=== PATIENT | female | born 1935 | race Caucasian/White ===

== ENCOUNTER → 2018-12-04 | Outpatient (CLI) | payer OTHER ==
[~2018-12-04] MED LIST: ALENDRONATE; BENTYL 20 MG TA20 M1 PO; CENTRUM SILVER1 EAC1 PO; CITRACAL + D C1 EACH PO; LIBRAX; OMEGA-3100 MG PO; OMEPRAZOLE20 MG PO; VITAMIN D1000 UNI1 PO
--- NOTE | 2018-12-04 09:20 | EXE ---
[facility] [place] [address] STRESS ECHOCARDIOGRAM Name: NGUYỄN STALEY Room #: REG [facility]#: [id number] ������������� Admission: 12/04/18 ������������� Attend Phys: Manisha Owusu Discharge: ��� ������������� ��� Date of : 35 Date of Service: 12/04/18918 �� Report #: [id number] �������� ��������������������������������������������[id number] THIS REPORT FOR: //name// APPROVED REPORT Study performed: 12/04/2018 08:12:39 Exam: Stress Echocardiogram Indication: Dyspnea on exertion Patient Location: Out-Patient Stress Nurse: Yelena Vallecillo RN Status: routine Ht: 5 ft 1 in HR: 65 bpm BP: 150/78 mmHg Rhythm: NSR Medical History Medical History: None Medications: No cardiac meds Allergies: Sulfa Cardiac Risk Factors: No risk factors Procedure The patient underwent an Exercise Stress Test using the J Luis Protocol. Blood pressure, heart rate, and EKG were monitored. An Echocardiogram was performed by geothermal field technician in four stages in quad fashion. At peak stress, four selected images were obtained and placed side by side with resting images for comparison. Stress Test Details Stress Test: Exercise stress testing was performed using a J Luis protocol. HR Resting HR: 65 bpm Max Heart Rate (APMHR): 137 bpm Max HR Achieved: 162 bpm Target HR (85% APMHR): 116 bpm % of APMHR: 118 Recovery HR: 88 bpm HR response to stress: Abnormal HR response to stress BP Resting BP: 150/78 mmHg Max BP: 164/70 mmHg Recovery BP: 142/74 mmHg ECG [facility] [address] [place] [address] STRESS ECHOCARDIOGRAM Name: REBEKANGUYỄN Pradip Room #: REG [facility]#: [id number] ������������� Admission: 12/04/18 ������������� Attend Phys: Manisha Owusu Discharge: ��� ������������� ��� Date of : 35 Date of Service: 12/04/18 0919 �� Report #: [id number] �������� ��������������������������������������������[id number] Resting ECG: Sinus Rhythm Stress ECG: Atrial fibrillation, nonspecific ST-T abnormalities ST Change: Normal Maximum ST Deviation: 0 mm Arrhythmia: Atrial fibrillation, PVC Recovery ECG: Sinus Rhythm Recovery ST Change: Normal Recovery ST Deviation: 0 mm Recovery Arrhythmia: None Clinical Reason for Termination: Dyspnea Stress Symptoms: dyspnea Exercise duration: 5 min sec Highest Stage Achieved: Stage 2: 2.5 mph at 12% grade. Exercise capacity: 7.00 METs Angina Score: None Stress ECG Conclusion Campos Treadmill Score is 5.0 which is Low risk. Pre-Stress Echo The resting Echocardiogram showed normal left ventricular contractility with an estimated Ejection Fraction of about 55-60%. Mild MR, TR. Trivial AI. Post-Stress Echo The stress Echocardiogram showed normal left ventricular contractility with an estimated Ejection Fraction of about 60-65%. Exercise-induced atrial fibrillation Conclusion Clinical Response: Non-ischemic Exercise Capacity: Average Stress ECG Response: Non-ischemic Stress Echo Images: Non-ischemic The left ventricle is normal in size and wall thickness in both the rest and stress images. Normal stress echocardiogram with maximal exercise stress. Atrial fibrillation occurred with exercise, reverting to sinus rhythm in the recovery phase. Atrial fibrillation was associated with shortness of breath. Other Information Study Quality: Good [facility] [address] [place] [address] STRESS ECHOCARDIOGRAM Name: REBEKANGUYỄN Moseley Room #: REG CL [facility]#: [id number] ������������� Admission: 12/04/18 ������������� Attend Phys: Manisha Owusu Discharge: ��� ������������� ��� Date of : 35 Date of Service: 12/04/18918 �� Report #: [id number] �������� ��������������������������������������������[id number] <Conclusion> The left ventricle is normal in size and wall thickness in both the rest and stress images. Normal stress echocardiogram with maximal exercise stress. Atrial fibrillation occurred with exercise, reverting to sinus rhythm in the recovery phase. Atrial fibrillation was associated with shortness of breath. ��������������������������������������������� <ELECTRONICALLY SIGNED> ���������������������������������������� By: Roberto Gomez MD, FACC ��������������������������������������������� 12/04/18918 8 8 Roberto Gomez MD, FACC /INF
== END ==
LOC: CV 07:46
DX: I48.91 Unspecified atrial fibrillation (principal); Z88.2 Allergy status to sulfonamides